=== PATIENT | male | born 1975 | race Caucasian/White ===

== ENCOUNTER 2019-03-13 08:34 | Inpatient (IN) | payer OTHER ==
[2019-03-13 09:32] VITALS: BMI 28.3
--- NOTE | 2019-03-13 09:59 | HP ---
CIWA Score Nausea/Vomitin Muscle Tremors: 1-None Visible, but [place] Anxiety: 4-Mod. Anxious/Guarded Agitation: 3 Paroxysmal Sweats: 3 Orientation: 1-Uncertain about Date Tacttile Disturbances: 0-None Auditory Disturbances: 0-None Visual Disturbances: 0-None Headache: 0-None Present CIWA-Ar Total Score: 14 - Admission Criteria OASAS Guidelines: Admission for Medically Managed Detox: Requires at least one of the followin. CIWA greater than 12 2. Seizures within the past 24 hours 3. Delirium tremens within the past 24 hours 4. Hallucinations within the past 24 hours 5. Acute intervention needed for co occurring medical disorder 6. Acute intervention needed for co occurring psychiatric disorder 7. Severe withdrawal that cannot be handled at a lower level of care (continued vomiting, continued diarrhea, abnormal vital signs) requiring intravenous medication and/or fluids 8. Admission ROS [facility] - [facility] Chief Complaint: ETOH withdrawal symptoms. Allergies/Adverse Reactions: Allergies Allergy/AdvReac Type Severity Reaction Status Date / Time Fish Containing Products Allergy Intermediate Swelling Verified 03/13/19 09:25 History of Present Illness: Patient is new to [facility] and presents fo ETOH withdrawal symptoms. Patient first started drinking at age 14. Patient drinks up to 1-2 pints of vodka and up to 30 beers daily. Last drink was on 03/12/19. Patient was in [facility] ER 03/12/19 due to intoxication and treated with IVFS and Librium. 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 Denies hx of seizures. Patient also sniffs cocaine socially, but not everyday. Last use was 03/12/19, less than one bag. PMH includes anxiety, although patient is noncompliant with cymbalta treatment. Patient denies SI/HI and suicide attempts. Istop negative. Urine tox + CARROLL and BZO CAYETANO 0.0 Exam Limitations: No Limitations - Ebola screening Have you traveled outside of the country in the last 21 days: No (N) Have you had contact with anyone from an Ebola affected area: No Have you been sick,other than usual withdrawal symptoms: No Do you have a fever: No - Review of Systems Constitutional: Night Sweats, Changes in sleep EENT: reports: Blurred Vision (occasionaly) Respiratory: reports: No Symptoms reported Cardiac: reports: No Symptoms Reported GI: reports: Diarrhea, Nausea, Poor Fluid Intake, Vomiting : reports: Frequency (due to etoh intake) Musculoskeletal: reports: No Symptoms Reported Integumentary: reports: Sweating Neuro: reports: Tremors Endocrine: reports: No Symptoms Reported Hematology: reports: No Symptoms Reported Psychiatric: reports: Anxious, other (reported date 03/12/19) Patient History - Patient Medical History Hx Anemia: No Hx Asthma: No Hx Chronic Obstructive Pulmonary Disease (COPD): No Hx Cancer: No Hx Cardiac Disorders: No Hx Congestive Heart Failure: No Hx Hypertension: No Hx Hypercholesterolemia: No Hx Pacemaker: No HX Cerebrovascular Accident: No Hx Seizures: No Hx Dementia: No Hx Diabetes: No Hx Gastrointestinal Disorders: No Hx Liver Disease: No Hx Genitourinary Disorders: No Hx Sexually Transmitted Disorders: No Hx Renal Disease (ESRD): No Hx Thyroid Disease: No Hx Human Immunodeficiency Virus (HIV): No (last test negative 2018) Hx Hepatitis C: No Hx Depression: No Hx Suicide Attempt: No Hx Bipolar Disorder: No Hx Schizophrenia: No Other Medical History: anxiety - Patient Surgical History Past Surgical History: No Anesthesia Reaction: No - PPD History Previous Implant?: Yes Documented Results: Negative w/o proof PPD to be Administered?: No - Smoking Cessation Smoking history: Current every day smoker Have you smoked in the past 12 months: Yes Aproximately how many cigarettes per day: 20 Hx Chewing Tobacco Use: No Initiated information on smoking cessation: Yes 'Breaking Loose' booklet given: 03/13/19 - Substance & Tx. History Hx Alcohol Use: Yes Hx Substance Use: Yes Substance Use Type: Alcohol, Cocaine Hx Substance Use Treatment: No - Substances abused Alcohol Substance route: Oral Frequency: Daily Amount used: 2-3 pints of vodka & 12 beers Age of first use: 18 Date of last use: 03/12/19 Cocaine Substance route: Inhalation Frequency: 1-3 times last 30 days Amount used: 1/2 bag Age of first use: 16 Date of last use: 03/12/19 Family Disease History - Family Disease History Family History: Denies Admission Physical Exam BHS - Vital Signs Vital Signs: Vital Signs - 24 hr 03/13/19 09:24 Temperature 97.0 F L Pulse Rate 84 Respiratory 16 Rate Blood Pressure 117/78 - Physical General Appearance: Yes: No Apparent Distress, Nourished, Tremorous, Sweating, Anxious HEENTM: Yes: EOMI, Hearing grossly Normal, Normal ENT Inspection, Normocephalic , Normal Voice, JUDY, Pharynx Normal Respiratory: Yes: Chest Non-Tender, Lungs Clear, Normal Breath Sounds, No Respiratory Distress, No Accessory Muscle Use Neck: Yes: No masses,lesions,Nodules, Supple, Trachea in good position Breast: Yes: Breast Exam Deferred Cardiology: Yes: Regular Rhythm, Regular Rate, S1, S2 Abdominal: Yes: Normal Bowel Sounds, Non Tender, Soft Genitourinary: Yes: Within Normal Limits Back: Yes: Normal Inspection, Muscle Spasm Musculoskeletal: Yes: full range of Motion, Gait Steady, Back pain, Muscle Pain Extremities: Yes: Normal Range of Motion, Non-Tender, Tremors 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, Fully Oriented, Alert, Motor Strength 5/5, Normal Response, Other (anxious) Integumentary: Yes: Normal Color, Warm, Moist Lymphatic: Yes: Within Normal Limits - Diagnostic (1) Alcohol dependence with uncomplicated withdrawal Current Visit: Yes Status: Acute (2) Cocaine dependence Current Visit: Yes Status: Chronic Qualifiers: Substance use status: uncomplicated Qualified Code(s): F14.20 - Cocaine dependence, uncomplicated (3) Anxiety Current Visit: Yes Status: Suspected Cleared for Admission S - Detox or Rehab [facility] Level of Care: Medically Managed Detox Regimen/Protocol: Librium Breathalyzer - Breathalyzer Breathalyzer: 0 Urine Drug Screen - Results Drug screen NEGATIVE: No Urine drug screen results: CARROLL-Cocaine, BZO-Benzodiazepines Inpatient Rehab Admission - Rehab Decision to Admit Inpatient rehab admission?: No
[2019-03-13] MEDS ORDERED: MENTHOL/PHENOL 1 EACH UD MM PRN (10:07)
[2019-03-13] MEDS ORDERED: BISMUTH SUBSALICYLATE 262 MG/15 ML BTL PO PRN (10:07)
[2019-03-13] MEDS ORDERED: MAG HYDROX/AL HYDROX/SIMETH 30 ML UNIT-DOSE CUP PO PRN (10:07)
[2019-03-13] MEDS ORDERED: IBUPROFEN 400 MG TABLET (FP) PO PRN (10:07)
[2019-03-13] MEDS ORDERED: MELATONIN 5 MG TABLETS PO PRN (10:07)
[2019-03-13] MEDS ORDERED: hydrOXYzine PAMOATE 25 MG CAPSULE (FP) PO PRN (10:07)
[2019-03-13] MEDS ORDERED: MAGNESIUM HYDROX 2400MG/30ML ORAL SUSPENSION 30 ML CUP PO PRN (10:07)
[2019-03-13] MEDS ORDERED: ONDANSETRON *ODT* 4 MG TABLET SL PRN (10:07)
[2019-03-13] MEDS ORDERED: MAGNESIUM CITRATE 300 ML BOTTLE PO PRN (10:07)
[2019-03-13] MEDS ORDERED: ACETAMINOPHEN 325 MG TABLET (FP) PO PRN ×2 (10:07)
[2019-03-13] MEDS ORDERED: guaiFENesin 200 MG/10 ML 10 ML UNIT-DOSE CUPS PO PRN (10:07)
[2019-03-13] MEDS ORDERED: chlordiazePOXIDE HCL 25 MG CAPSULE PO PRN (10:09)
[2019-03-13] MEDS: chlordiazePOXIDE HCL 25 MG CAPSULE PO SCH ×3 (11:32→22:00)
--- NOTE | 2019-03-13 11:47 | EKG ---
Test Reason : Blood Pressure : / mmHG Vent. Rate : 078 BPM Atrial Rate : 078 BPM P-R Int : 122 ms QRS Dur : 086 ms QT Int : 394 ms P-R-T Axes : 048 052 003 degrees QTc Int : 449 ms NORMAL SINUS RHYTHM CANNOT RULE OUT ANTERIOR INFARCT , AGE UNDETERMINED ABNORMAL ECG NO PREVIOUS ECGS AVAILABLE Confirmed by MARLI MARIA MD ([id number]) on 03/13/2019 11:46:41 AM Referred By: Confirmed By:MARLI MARIA MD
[2019-03-13 14:48] LABS: HEMATOCRIT 38.2 % (35.4-49); HEMOGLOBIN 12.4 GM/dL (11.7-16.9); MCH 28.7 pg (25.7-33.7); MCHC 32.5 g/dl (32.0-35.9); MEAN CELL VOLUME 88.2 fl (80-96); PLATELET COUNT 206 K/MM3 (134-434); RBC 4.33 M/mm3 (4.00-5.60); WHITE BLOOD COUNT 6.2 K/mm3 (4.0-10.0)
[2019-03-13 15:00] LABS: ALBUMIN 3.5 g/dl (3.4-5.0); BILIRUBIN,TOTAL 1.2 mg/dL (0.2-1); BLOOD UREA NITROGEN 12.7 mg/dL (7-18); CALCIUM 8.5 mg/dL (8.5-10.1); CREATININE 0.7 mg/dL (0.55-1.3); TOT PROT 6.6 g/dl (6.4-8.2)
[2019-03-13] MEDS: THIAMINE HCL 100 MG TABLET (FP) PO SCH (22:00)
[2019-03-13] MEDS: traZODone HCL 50 MG TABLET (FP) PO PRN (22:02)
[2019-03-14] MEDS: chlordiazePOXIDE HCL 25 MG CAPSULE PO SCH ×4 (05:55→22:18)
--- NOTE | 2019-03-14 10:29 | PN ---
S CIWA - CIWA Score Nausea/Vomitin-No Nausea/No Vomiting Muscle Tremors: 2 Anxiety: 3 Agitation: 1-Slight > Activity Paroxysmal Sweats: 3 Orientation: 0-Oriented Tacttile Disturbances: 0-None Auditory Disturbances: 0-None Visual Disturbances: 0-None Headache: 2-Mild CIWA-Ar Total Score: 11 S Progress Note (SOAP) Subjective: c/o sweats, headache, anxiety, and shakes. Objective: 03/14/19 10:28 Vital Signs 03/14/19 03/14/19 06:00 09:46 Temperature 97.7 F 97.2 F L Pulse Rate 86 78 Respiratory 18 18 Rate Blood Pressure 116/75 130/84 Lab Results WBC 6.2 K/mm3 (4.0-10.0) 03/13/19 10:50 RBC 4.33 M/mm3 (4.00-5.60) 03/13/19 10:50 Hgb 12.4 GM/dL (11.7-16.9) 03/13/19 10:50 Hct 38.2 % (35.4-49) 03/13/19 10:50 MCV 88.2 fl (80-96) 03/13/19 10:50 MCHC 32.5 g/dl (32.0-35.9) 03/13/19 10:50 RDW 14.0 % (11.9-15.9) 03/13/19 10:50 Plt Count 206 K/MM3 (134-434) 03/13/19 10:50 Sodium 142 mmol/L (136-145) 03/13/19 10:50 Potassium 4.0 mmol/L (3.5-5.1) 03/13/19 10:50 Chloride 107 mmol/L (98-107) 03/13/19 10:50 Carbon Dioxide 28 mmol/L (21-32) 03/13/19 10:50 Anion Gap 7 MMOL/L (8-16) L 03/13/19 10:50 BUN 12.7 mg/dL (7-18) 03/13/19 10:50 Creatinine 0.7 mg/dL (0.55-1.3) 03/13/19 10:50 Random Glucose 88 mg/dL (74-106) 03/13/19 10:50 Calcium 8.5 mg/dL (8.5-10.1) 03/13/19 10:50 Labs noted. Assessment: 03/14/19 10:28 AOX3, in no acute respiratory distress. Full ROM, ambulating in the unit. Withdrawal symptoms. Plan: continue detox.
[2019-03-14] MEDS: PRENATAL VITAMINS W/ FOLIC ACID TABLET (FP) PO SCH (10:36)
[2019-03-14] MEDS: THIAMINE HCL 100 MG TABLET (FP) PO SCH (22:18)
[2019-03-14] MEDS: traZODone HCL 50 MG TABLET (FP) PO PRN (22:20)
[2019-03-15] MEDS: chlordiazePOXIDE HCL 25 MG CAPSULE PO SCH ×3 (05:18→17:16)
[2019-03-15 06:23] VITALS: PULSE 79
[2019-03-15] MEDS: PRENATAL VITAMINS W/ FOLIC ACID TABLET (FP) PO SCH (10:09)
--- NOTE | 2019-03-15 12:39 | PN ---
[facility] CIWA - CIWA Score Nausea/Vomitin-Mild Nausea/No Vomiting Muscle Tremors: 2 Anxiety: 3 Agitation: 2 Paroxysmal Sweats: 2 Orientation: 0-Oriented Tacttile Disturbances: 0-None Auditory Disturbances: 0-None Visual Disturbances: 0-None Headache: 0-None Present CIWA-Ar Total Score: 10 S Progress Note (SOAP) Subjective: Anxious, restless. Patient requesting to leave tomorrow stating that his sister told him yesterday that his mother is admitted in the hospital for the past 2 weeks and he needs to visit her. Patient aware lyric writer cannot discharge him until Saturday but he insisted on leaving tomorrow. Patient aware that he would be leaving AMA if he leaves tomorrow. Patient encouraged to complete detox. Objective: 03/15/19 12:37 Last Vital Signs Temp Pulse Resp BP Pulse Ox 97.9 F 79 18 123/82 03/15/19 09:22 03/15/19 09:22 03/15/19 09:22 03/15/19 09:22 Laboratory Tests 03/13/19 03/13/19 03/13/19 10:50 10:50 10:50 WBC 6.2 RBC 4.33 Hgb 12.4 Hct 38.2 MCV 88.2 MCH 28.7 MCHC 32.5 RDW 14.0 Plt Count 206 MPV 9.0 Sodium 142 Potassium 4.0 Chloride 107 Carbon Dioxide 28 Anion Gap 7 L BUN 12.7 Creatinine 0.7 Est GFR (CKD-EPI)AfAm 133.96 Est GFR (CKD-EPI)NonAf 115.58 Random Glucose 88 Calcium 8.5 Total Bilirubin 1.2 H AST 30 ALT 59 Alkaline Phosphatase 83 Total Protein 6.6 Albumin 3.5 RPR Titer Nonreactive Labs reviewed Assessment: 03/15/19 12:37 Withdrawal sxs Plan: Continue detox Encouraged PO water intake
[2019-03-15 16:40] VITALS: BP 146/86; TEMP 97.7
--- NOTE | 2019-03-15 18:05 | DS ---
[facility] Detox Discharge Summary Admission Date: 03/13/19 - History Present History: Alcohol Dependence, Cocaine Dependence Pertinent Past History: Laboratory Tests 03/13/19 03/13/19 03/13/19 10:50 10:50 10:50 WBC 6.2 RBC 4.33 Hgb 12.4 Hct 38.2 MCV 88.2 MCH 28.7 MCHC 32.5 RDW 14.0 Plt Count 206 MPV 9.0 Sodium 142 Potassium 4.0 Chloride 107 Carbon Dioxide 28 Anion Gap 7 L BUN 12.7 Creatinine 0.7 Est GFR (CKD-EPI)AfAm 133.96 Est GFR (CKD-EPI)NonAf 115.58 Random Glucose 88 Calcium 8.5 Total Bilirubin 1.2 H AST 30 ALT 59 Alkaline Phosphatase 83 Total Protein 6.6 Albumin 3.5 RPR Titer Nonreactive Vital Signs - 24 hr 03/14/19 03/15/19 03/15/19 20:44 00:30 03:30 Temperature 98.2 F Pulse Rate 83 Respiratory 20 18 18 Rate Blood Pressure 132/86 03/15/19 03/15/19 03/15/19 06:00 09:22 16:39 Temperature 97.5 F L 97.9 F 97.7 F Pulse Rate 79 79 79 Respiratory 18 18 18 Rate Blood Pressure 113/68 123/82 146/86 - Physical Exam Results Vital Signs: Vital Signs Temperature 97.7 F 03/15/19 16:39 Pulse Rate 79 03/15/19 16:39 Respiratory Rate 18 03/15/19 16:39 Blood Pressure 146/86 03/15/19 16:39 O2 Sat by Pulse Oximetry (%) Pertinent Admission Physical Exam Findings: pt req ama dc to attend to family matters will not await md chin, 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
[2019-03-16] MEDS ORDERED: chlordiazePOXIDE HCL 10 MG CAPSULE PO PRN
[2019-03-16] MEDS ORDERED: chlordiazePOXIDE HCL 10 MG CAPSULE PO SCH (05:00)
[2019-03-17] MEDS ORDERED: chlordiazePOXIDE HCL 10 MG CAPSULE PO SCH (05:00)
[2019-03-18] MEDS ORDERED: chlordiazePOXIDE HCL 10 MG CAPSULE PO ONE (05:00)
== END 2019-03-15 18:42 | disposition left against medical advice (07) | DRG 770 ==
LOC: YASAS 08:34 → Y6N 10:24
PROVIDERS: ADMIT Surgery; ATTEND Surgery
PROC: HZ2ZZZZ Detoxification Services for Substance Abuse Treatment (ICD-10-PCS; principal; 2019-03-13)
DX: F10.230 Alcohol dependence with withdrawal, uncomplicated (principal); F14.20 Cocaine dependence, uncomplicated; F17.210 Nicotine dependence, cigarettes, uncomplicated; F41.9 Anxiety disorder, unspecified
CPT/HCPCS: 36415; 80053; 85027; 86480; 86593; 93005; 93010